=== PATIENT | male | born 1995 | race Caucasian/White ===

== ENCOUNTER 2021-11-20 07:35 | Observation (INO) ==
[2021-11-20] MEDS ORDERED: MoRPHine SULFATE 10 MG/ML CARP/VIAL IV STA ×2 (07:45→09:54)
[2021-11-20] MEDS ORDERED: ONDANSETRON INJ 2 MG/ML 2 ML VIAL IV STA (07:45)
--- NOTE | 2021-11-20 07:54 | Emergency Department Note ---
History of Present Illness General Chief complaint: Abdominal Pain Stated complaint: ABDOMINAL PAIN Time Seen by Provider: 11/20/21 07:41 Source: patient Mode of arrival: ambulatory Limitations: no limitations History of Present Illness Maximum Pain Intensity: 7 This patient is a 26-year-old male who presents to the emergency department complaining of abdominal pain. Patient states that his pain started last night around 5 PM after eating a dinner of spaghetti. Pain is located in the right upper quadrant. He reports associated vomiting. He rates his current discomfort a 6/10. He has not taken anything at home for the pain. He denies fever/chills or urinary symptoms. He does report that he has been told he has gallstones in the past. Home Medications Medication Instructions Recorded Confirmed Type fluticasone propionate 50 1 spray INTRANASAL BID 11/20/21 11/20/21 History mcg/actuation nasal spray,suspension levocetirizine 5 mg tablet (Xyzal) 5 mg PO DAILY PRN 11/20/21 11/20/21 History Allergies Allergy/AdvReac Type Severity Reaction Status Date / Time No Known Allergies Allergy Unknown unknown Unverified 07/19/09 13:31 Past Med/Surg History Medical History History of gallstones Surgical History History of removal of cyst Social History Smoking Status: Never smoker Second Hand Exposure: No; Do You Dip or Chew Tobacco: No; Tobacco Cessation Education Requested by Patient: No Hx Alcohol Use: Yes Alcohol type: beer Hx Substance Use: No Preferred Language: Macedonian Communication Ability: Effective Ultra Sound Technician Required: No Beliefs That Will Affect Care: None Current Living Situation: Spouse Other Information That Helps Us Care for You: No Feels Safe at Home: Yes Safety Concerns: Feels Safe At This Time Assistive Devices: Glasses Review of Systems A total of 10 systems reviewed and were otherwise negative Physical Exam Vital Signs Vital Signs - 24 hr 11/20/21 07:37 11/20/21 08:02 11/20/21 08:59 Temperature 36.7 C Temperature Source Temporal Artery Scan Pulse Rate 103 H Pulse Rate [Right Finger] 96 H 95 H Respiratory Rate 20 20 20 Respiratory Effort / Characteristics Non-Labored Spontaneous Non-Labored Spontaneous Non-Labored Spontaneous Respiratory Depth Normal Normal Normal Respiratory Pattern Regular Regular Blood Pressure 145/90 H Blood Pressure [Right Arm] 137/84 139/85 Blood Pressure Mean 108 Blood Pressure Mean [Right Arm] 101 103 Blood Pressure Position Sitting Pulse Oximetry 98 94 99 Oxygen Delivery Method Room Air Room Air Sepsis Recent Fever Within 48 Hours No Sepsis New/Unexplained Change in Mental Status N/A Sepsis Action Taken by Nursing No Action Required VITALS: Vitals are noted on the nurse's note and reviewed by myself. GENERAL: This is a 26-year-old male, in no acute distress, well-developed well- nourished. SKIN: The skin was without rashes. EARS: External auditory canals clear, tympanic membranes pearly merrill without erythema or effusion bilaterally. EYES: Pupils equal round and reactive to light and accommodation. MOUTH: Mucous membranes moist. Tonsils are not enlarged. Pharynx without erythema or exudate. NECK: Supple without nuchal rigidity. No lymphadenopathy. HEART: Regular rate and rhythm without murmurs gallops or rubs. LUNGS: Clear to auscultation bilaterally without wheezes, rales or rhonchi. ABDOMEN: Positive bowel sounds x 4. Soft, moderate tenderness to palpation in the right upper quadrant, mild tenderness in the right lower quadrant. No guarding or rebound tenderness. NEURO: Patient was alert and oriented to person place and time. Course Administered Medications Ondansetron HCl (Ondansetron Inj 2 Mg/Ml 2 Ml Vial) 4 mg IV Q6 PRN PRN Reason: Vomiting Stop: 12/20/21 10:03 Last Admin: 11/20/21 13:57 Dose: 4 mg Documented by: [id number] Discontinued Medications Promethazine HCl (Phenergan) 12.5 mg in 50.5 mls @ 202 mls/hr IV NOW STA Stop: 11/20/21 10:08 Last Infusion: 11/20/21 10:43 Dose: 0 mls/hr Documented by: [id number] Admin: 11/20/21 10:04 Dose: 202 mls/hr Documented by: [id number] Morphine Sulfate (Morphine Sulfate 10 Mg/Ml Carp/Vial) 6 mg IV NOW STA Stop: 11/20/21 07:46 Last Admin: 11/20/21 07:57 Dose: 6 mg Documented by: [id number] Morphine Sulfate (Morphine Sulfate 10 Mg/Ml Carp/Vial) 6 mg IV NOW STA Stop: 11/20/21 09:55 Last Admin: 11/20/21 10:04 Dose: 6 mg Documented by: [id number] Ondansetron HCl (Ondansetron Inj 2 Mg/Ml 2 Ml Vial) 4 mg IV NOW STA Stop: 11/20/21 07:46 Last Admin: 11/20/21 07:57 Dose: 4 mg Documented by: [id number] Medical Decision Making Differential Diagnosis Appendicitis, testicular torsion, infections, diverticulitis, UTI, obstruction, mesenteric ischemia, aortic pathology, inflammatory bowel disease, renal colic, PUD, pancreatitis, biliary pathology, hernia, volvulus, constipation, as well as other pathologies. Home Medications Current Medication List: was personally reviewed by me Laboratory Data Attestation: I reviewed the patient's lab results. Result diagrams: 11/20/21 07:46 11/20/21 09:30 Lab Results 11/20/21 11/20/21 11/20/21 Range/Units 07:46 07:46 09:30 WBC 10.24 (4.8-10.8) K/uL RBC 4.79 (4.7-6.1) M/uL Hgb 16.1 (14.0-18.0) g/dL Hct 44.0 (42-52) % MCV 91.9 (80-100) fL MCH 33.6 (25-34) pg MCHC 36.6 H (32-36) g/dL RDW Std Deviation 54.4 H (36.4-46.3) fL RDW Coeff of Kelsey 16.2 H (11.5-14.5) % Plt Count 143 (130-400) K/uL MPV 9.8 (7.4-10.4) fL Immature Gran % (Auto) 0.5 % Neut % (Auto) 87.3 % Lymph % (Auto) 4.6 % Dickens % (Auto) 5.9 % Eos % (Auto) 1.5 % Baso % (Auto) 0.2 % Neut # (Auto) 8.95 H (1.4-6.5) K/uL Lymph # (Auto) 0.47 L (1.2-3.4) K/uL Dickens # (Auto) 0.60 H (0.11-0.59) K/uL Eos # (Auto) 0.15 (0-0.5) K/uL Baso # (Auto) 0.02 (0-0.2) K/uL Immature Gran # (Auto) 0.05 H (0.00-0.02) K/uL Sodium 136 (136-145) mmol/L Potassium 4.1 (3.5-5.1) mmol/L Chloride 104 (98-107) mmol/L Carbon Dioxide 25 (21-32) mmol/L Anion Gap 7 (3-11) BUN 14 (6-23) mg/dl Creatinine 0.73 (0.6-1.4) mg/dl Est Cr Clr Drug Dosing 168.3 ml/min Est GFR ( Amer) 148.4 ml/min Est GFR (Non-Af Amer) 128.0 ml/min BUN/Creatinine Ratio 19.2 (10-20) Glucose 111 H (70-99(Fasting)) mg/dl Calcium 10.3 H (8.5-10.1) mg/dl Total Bilirubin 2.9 H (0.2-1.0) mg/dl AST 50 H (13-39) U/L ALT 134 H (7-52) U/L Alkaline Phosphatase 96 (34-104) U/L Total Protein 8.1 (6.0-8.3) gm/dl Albumin 5.2 H (3.4-5.0) gm/dl Globulin 2.9 (2.5-4.0) gm/dl Albumin/Globulin Ratio 1.8 (0.9-2) Lipase 28 (11-82) U/L Imaging Data Attestation: I personally reviewed and interpreted this imaging study as follows: Radiologist's Impression: Gallbladder Ultrasound 11/20/21 07:45 US gallbladder CLINICAL HISTORY: Ruq pain, vomiting, hx gallstones. COMPARISON: 12/18/2015 TECHNIQUE: Multiple grayscale and color images of the right upper quadrant of the abdomen. FINDINGS: The study is limited by overlying bowel gas. Pancreas: The pancreas is obscured by overlying bowel gas. Liver: The liver is mildly enlarged with evidence for diffuse fatty infiltration. It measures approximately 18.9 cm in greatest length. There is no evidence for a focal mass. There is no intrahepatic biliary duct dilatation. Gallbladder: The gallbladder is distended with a calculus seen within the neck of the gallbladder. However, there is no evidence for wall thickening or pericholecystic edema. There was reportedly a negative sonographic Nieto sign. Common Bile Duct: (CBD): It is normal in size measuring 5 mm. Inferior Vena Cava (IVC): The imaged IVC is patent. Right kidney: There is no evidence for hydronephrosis, calculus or gross renal mass. The kidney is normal in size. IMPRESSION: 1. Limited examination with nonvisualization of pancreas. 2. Cholelithiasis with no ultrasound evidence for acute cholecystitis. 3. Mild hepatomegaly with fatty infiltration of the liver. ACT 112: Negative or not required by law. Electronically signed by: Kevin Gallegos M.D. 11/20/2021 8:52 AM MDM Narrative Continuous meat grinder: Order was placed for continuous meat grinder. Patient was placed on the meat grinder. Patient was noted to be in sinus tachycardia at an initial rate of 105 bpm. The patient is a 26-year-old male who presents today complaining of right upper quadrant abdominal pain and vomiting. Patient has a known history of gallstones. On work-up today, he is noted to have a gallstone in the neck of the gallbladder with associated transaminitis. Bilirubin is 2.9. Patient treated with pain and nausea medication in the ER. He will need admitted for further work-up including MRCP/ERCP. Case was discussed with the [facility], who agreed to evaluate the patient for further care. Impression & Plan Symptomatic cholelithiasis, Transaminitis Discharge Plan Visit Data Chief Complaint: Abdominal Pain Stated Complaint: ABDOMINAL PAIN ED Provider: Reese Burris ED Midlevel Provider: Ria Kelley Discharge Problem: Symptomatic cholelithiasis, Transaminitis Discharge Instructions Interventions: ED Discharge Assessment Last Done: 11/20/21 13:15
[2021-11-20 08:04] LABS: Basophils # (auto) 0.02 K/uL (0-0.2); Basophils % (auto) 0.2 %; Eosinophils # (auto) 0.15 K/uL (0-0.5); Eosinophils % (auto) 1.5 %; Hemoglobin 16.1 g/dL (14.0-18.0); Immature Granulocytes # (auto) 0.05 K/uL (0.00-0.02); Immature Granulocytes % (auto) 0.5 %; Lymphocytes # (auto) 0.47 K/uL (1.2-3.4); Lymphocytes % (auto) 4.6 %; Mean Corpuscular Hemoglobin 33.6 pg (25-34); Mean Corpuscular Hgb Conc 36.6 g/dL (32-36); Mean Corpuscular Volume 91.9 fL (80-100); Mean Platelet Volume 9.8 fL (7.4-10.4); Monocytes % (auto) 5.9 %; Neutrophils # (auto) 8.95 K/uL (1.4-6.5); Neutrophils % (auto) 87.3 %; Platelet Count 143 K/uL (130-400); RDW Coefficient of Variation 16.2 % (11.5-14.5); RDW Standard Deviation 54.4 fL (36.4-46.3); Red Blood Count 4.79 M/uL (4.7-6.1); White Blood Count 10.24 K/uL (4.8-10.8)
[2021-11-20 08:36] LABS: Albumin Globulin Ratio 1.8 (0.9-2); Albumin Level 5.2 gm/dl (3.4-5.0); BUN Creatinine Ratio 19.2 (10-20); Bilirubin,Total 2.9 mg/dl (0.2-1.0); Calcium 10.3 mg/dl (8.5-10.1); Creatinine Clr Calc Pharmacy 168.3 ml/min; Est GFR (African American) 148.4 ml/min; Globulin 2.9 gm/dl (2.5-4.0); Total Protein 8.1 gm/dl (6.0-8.3)
--- NOTE | 2021-11-20 08:53 | Ultrasound Report ---
US gallbladder CLINICAL HISTORY: Ruq pain, vomiting, hx gallstones. COMPARISON: 12/18/2015 TECHNIQUE: Multiple grayscale and color images of the right upper quadrant of the abdomen. FINDINGS: The study is limited by overlying bowel gas. Pancreas: The pancreas is obscured by overlying bowel gas. Liver: The liver is mildly enlarged with evidence for diffuse fatty infiltration. It measures approxi mately 18.9 cm in greatest length. There is no evidence for a focal mass. There is no intrahepatic bi liary duct dilatation. Gallbladder: The gallbladder is distended with a calculus seen within the neck of the gallbladder. H owever, there is no evidence for wall thickening or pericholecystic edema. There was reportedly a neg ative sonographic Nieto sign. Common Bile Duct: (CBD): It is normal in size measuring 5 mm. Inferior Vena Cava (IVC): The imaged IVC is patent. Right kidney: There is no evidence for hydronephrosis, calculus or gross renal mass. The kidney is n ormal in size. IMPRESSION: 1. Limited examination with nonvisualization of pancreas. 2. Cholelithiasis with no ultrasound evidence for acute cholecystitis. 3. Mild hepatomegaly with fatty infiltration of the liver. ACT 112: Negative or not required by law. Electronically signed by: Kevin Gallegos M.D. 11/20/2021 8:52 AM
--- NOTE | 2021-11-20 09:53 | History & Physical Report ---
Date of Service November 20, 2021 Assessment & Plan (1) Symptomatic cholelithiasis: (2) Transaminitis: (3) Seasonal allergies: (4) History of asthma: Plan: 26-year-old male with history of gallstone presented to ED today with right sided abdominal pain, nausea and vomiting after eating spaghetti last evening. 1. Symptomatic cholelithiasis- ultrasound upper quadrant shows calculus in neck of gallbladder but no acute cholecystitis, CBD normal. Transaminitis with ALT 134, AST 50, bilirubin 2.9. ALP normal. Lipase normal. No evidence of acute cholecystitis or cholangitis. No indication for antibiotics currently. Continue symptomatic management with IV analgesic, antiemetic, IVF, n.p.o. Patient will need cholecystectomy. Consult general surgery and GI 2. Transaminitis- from above. Recheck in a.m. 3. 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 History of [id number], no exacerbation. DVT prophyalxis: scd, sc lovenox Disposition: Observation, Pending surgery evaluation for cholecystectomy Full code Contact: updated at bedside History of Present Illness Chief Complaint: RUQ pain after dinner, N/V Primary Care Provider: NO PCP 26-year-old male with history of asthma, seasonal allergies and gallstones present to ED today with right-sided abdominal pain, nausea and vomiting which started after eating spaghetti last night. Patient was found to have cholelithiasis incidentally about 5 years back but never had any problems from it until last night. After eating spaghetti for dinner at around 5 PM yesterday, he started having right-sided upper quadrant pain, which has been constant since then, currently at 7. Also has been having multiple episodes of nausea and vomiting since 3 AM, has vomited about 6 times. Has had 4 episodes of bowel movement, no diarrhea. No fever, chills. No chest pain or shortness of breath. He does not smoke or drink alcohol. In ED, he was afebrile and hemodynamically stable. Labs showed transaminitis with elevated bilirubin. Normal CBC, BMP, lipase. Right upper quadrant ultrasound showed cholelithiasis but no cholecystitis, CBD normal, nonvisualized pancreas Patient was given IV morphine, Zofran and Reglan in the ED with some improvement. Hospitalist service was consulted for admission. I saw and examin ed the patient at bedside in presence of . Pain currently 6 out of 10 and he was nauseous. Allergies Allergy/AdvReac Type Severity Reaction Status Date / Time No Known Allergies Allergy Unknown unknown Unverified 07/19/09 13:31 Home Medications Medication Instructions Recorded Confirmed Type fluticasone propionate 50 1 spray INTRANASAL BID 11/20/21 11/20/21 History mcg/actuation nasal spray,suspension levocetirizine 5 mg tablet (Xyzal) 5 mg PO DAILY PRN 11/20/21 11/20/21 History Past Med/Surg History Medical History History of gallstones Surgical History History of removal of cyst Social History Smoking Status: Never smoker Feels Safe at Home: Yes Review of Systems Review of Systems: All systems reviewed & are unremarkable except as noted in Subjective Physical Exam Physical Exam: General: Well-developed, sitting in bed, not in acute distress, on room air HEENT: EOMI, RANDALL, MMM Chest: Clear breath sounds bilaterally, no wheezes or crackles CVS: Regular rate and rhythm, normal heart sounds, no murmur Abdomen: Soft, right upper quadrant tenderness, not distended, normal bowel sounds Neuro: Awake, alert, orientedx3, conversing well, non focal Extremities: No cyanosis, clubbing or edema Results & Data Results & Data ([facility]) Vital Signs (Past 12 Hours) Vital Signs Temp Pulse Pulse Resp BP BP Pulse Ox 11/20/21 08:59 95 H 20 139/85 99 11/20/21 08:02 96 H 20 137/84 94 11/20/21 07:37 36.7 C 103 H 20 145/90 H 98 Laboratory Results Short CBC 11/20/21 Range/Units 07:46 WBC 10.24 (4.8-10.8) K/uL Hgb 16.1 (14.0-18.0) g/dL Hct 44.0 (42-52) % Plt Count 143 (130-400) K/uL BMP 11/20/21 07:46 Sodium 136 Potassium Chloride 104 Carbon Dioxide 25 BUN 14 Creatinine 0.73 Glucose 111 H Calcium 10.3 H Liver Function 11/20/21 Range/Units 07:46 Total Bilirubin 2.9 H (0.2-1.0) mg/dl AST (13-39) U/L ALT 134 H (7-52) U/L Alkaline Phosphatase 96 (34-104) U/L Albumin 5.2 H (3.4-5.0) gm/dl Diagnostic Findings Gallbladder Ultrasound 11/20/21 07:45 US gallbladder CLINICAL HISTORY: Ruq pain, vomiting, hx gallstones. COMPARISON: 12/18/2015 TECHNIQUE: Multiple grayscale and color images of the right upper quadrant of the abdomen. FINDINGS: The study is limited by overlying bowel gas. Pancreas: The pancreas is obscured by overlying bowel gas. Liver: The liver is mildly enlarged with evidence for diffuse fatty infiltration. It measures approximately 18.9 cm in greatest length. There is no evidence for a focal mass. There is no intrahepatic biliary duct dilatation. Gallbladder: The gallbladder is distended with a calculus seen within the neck of the gallbladder. However, there is no evidence for wall thickening or pericholecystic edema. There was reportedly a negative sonographic Nieto sign. Common Bile Duct: (CBD): It is normal in size measuring 5 mm. Inferior Vena Cava (IVC): The imaged IVC is patent. Right kidney: There is no evidence for hydronephrosis, calculus or gross renal mass. The kidney is normal in size. IMPRESSION: 1. Limited examination with nonvisualization of pancreas. 2. Cholelithiasis with no ultrasound evidence for acute cholecystitis. 3. Mild hepatomegaly with fatty infiltration of the liver. ACT 112: Negative or not required by law. Electronically signed by: Kevin Gallegos M.D. 11/20/2021 8:52 AM Code Status & VTE Plan VTE Prophylaxis Plan VTE Prophylaxis will be ordered: Yes
[2021-11-20] MEDS ORDERED: PROMETHAZINE 12.5 MG/50.5 ML BAG IV STA (09:54)
[2021-11-20 09:57] LABS: Potassium 4.1 mmol/L (3.5-5.1)
[2021-11-20] MEDS ORDERED: CETIRIZINE HCL 10 MG TABLET PO PRN (13:23)
[2021-11-20] MEDS: SODIUM CHLORIDE 0.9% 1000ML 1,000 ML IV SCH (13:25)
[2021-11-20 13:26] LABS: Appearance Urine Clear (Clear); Bacteria Urine Automated Negative (Negative); Blood Urine Negative (Negative); Epithelial Cell Urine Auto 0-5 /lpf (0-5); Glucose Urine UA Negative (Negative); Ketones Urine Negative (Negative); Leukocyte Esterase Urine 1+ (Negative); Nitrite Urine Positive (Negative); Protein Urine Trace (Negative); RBC Urine Automated 0-4 /hpf (0-4); Specific Gravity Urine 1.023 (1.000-1.030); Urobilinogen Urine Negative (Negative)
[2021-11-20 13:33] LABS: Bilirubin Urine 1+ (Negative); Color Urine Dark Yellow
[2021-11-20] MEDS: ONDANSETRON INJ 2 MG/ML 2 ML VIAL IV PRN (13:57)
--- NOTE | 2021-11-20 14:04 | Surgery Consultation ---
Date of Consultation November 20, 2021 Assessment & Plan (1) Symptomatic cholelithiasis: This is a 26y M with a PMH of allergies who presents to the [facility] ED on 11/20/21 with complaints of abdominal pain associated with nausea/vomiting that started this morning. He came into the ER for evaluation due to ongoing symptoms. A RUQ US was obtained that revealed a distended gallbladder with + stones seen within the neck of the gallbladder. There is no evidence for wall thickening or pericholecystic edema. CBD measures 5mm. Labs reveal WBC 10 and Tbili elevated to 2.9, AST:50, ALT: 134, Lipase: 28. On exam abdomen is soft with discomfort to palpation in the RUQ/epigastric regions. He reports ongoing pain and nausea currently. GI has been consulted for elevated transaminases. We can order an MRCP in the meantime to evaluate for any CBD stones...per RUQ US CBD is within normal limits. Timing of surgery TBD, we will await GI input. NPO at midnight pending any upcoming procedures. Supervising Physician Co-Signing Physician Notes Plan for laparoscopic cholecystectomy at some point GI has been asked to see the patient as his bilirubin is elevated may need an ERCP We will order an MRCP Tentatively on OR schedule for tomorrow History of Present Illness Attending Physician: Nino Jacinto MD History of Present Illness This is a 26y M with a PMH of allergies who presents to the [facility] ED on 11/20/21 with complaints of abdominal pain associated with nausea/vomiting. Patient reports his abdominal pain started this AM. He woke up and had a BM with some relief, but then when he woke up for the 2nd time he was nauseated and had several bouts of vomiting up to 8-9x. He came into the ER for further evaluation. A RUQ US was obtained that revealed a distended gallbladder with + stones seen within the neck of the gallbladder. There is no evidence for wall thickening or pericholecystic edema and the CBD measures 5mm. Patient reports knowing he had a history of gallstones over the last 5 years that have bothered him intermittently but never as severe as this episode. He states his pain is currently about a 5/10 located in the right upper abdomen. He last had anything to eat yesterday at 4:30pm, which consisted of spaghetti. He denies a history of trouble with eating anything spicy/greasy/fatty in the past. He reports some chills. Denies CP/SOB, change in bowel habits, or prior abdominal surgery. Allergies Allergy/AdvReac Type Severity Reaction Status Date / Time No Known Allergies Allergy Unknown unknown Unverified 07/19/09 13:31 Home Medications Medication Instructions Recorded Confirmed Type fluticasone propionate 50 1 spray INTRANASAL BID 11/20/21 11/20/21 History mcg/actuation nasal spray,suspension levocetirizine 5 mg tablet (Xyzal) 5 mg PO DAILY PRN 11/20/21 11/20/21 History Patient History Medical History History of gallstones Surgical History History of removal of cyst Social History Smoking Status: Never smoker Second Hand Exposure: No; Do You Dip or Chew Tobacco: No; Tobacco Cessation Education Requested by Patient: No Hx Alcohol Use: Yes Alcohol type: beer Hx Substance Use: No Preferred Language: Lao Communication Ability: Effective Ski Molder Required: No Beliefs That Will Affect Care: None Current Living Situation: Spouse Other Information That Helps Us Care for You: No Feels Safe at Home: Yes Safety Concerns: Feels Safe At This Time Assistive Devices: Glasses Review of Systems Constitutional: + chills; no fever Respiratory: no dyspnea Cardiovascular: no chest pain Gastrointestinal: + abdominal pain, + bloating, + nausea and + vomiting; no change in bowel habits Physical Exam Physical Exam: awake/alert Respiratory: normal respiratory effort Gastrointestinal (Abdomen): Inspection/Auscultation: + abdomen distended (mild) Percussion/Palpation: + abdomen tender (in RUQ/epigastric region) and abdomen soft Results & Data ([facility]) Vital Signs (Past 12 Hours) Vital Signs Temp Pulse Pulse Pulse Resp BP BP 11/20/21 13:20 36.6 C 105 H 16 145/87 H 11/20/21 13:00 106 H 20 11/20/21 11:15 100 H 18 11/20/21 10:00 126 H 18 11/20/21 08:59 95 H 20 11/20/21 08:02 96 H 20 11/20/21 07:37 36.7 C 103 H 20 145/90 H BP Pulse Ox 11/20/21 13:20 93 11/20/21 13:00 135/79 93 11/20/21 11:15 147/84 H 94 11/20/21 10:00 137/73 94 11/20/21 08:59 139/85 99 11/20/21 08:02 137/84 94 11/20/21 07:37 98 Diagnostic Findings US gallbladder CLINICAL HISTORY: Ruq pain, vomiting, hx gallstones. COMPARISON: 12/18/2015 TECHNIQUE: Multiple grayscale and color images of the right upper quadrant of the abdomen. FINDINGS: The study is limited by overlying bowel gas. Pancreas: The pancreas is obscured by overlying bowel gas. Liver: The liver is mildly enlarged with evidence for diffuse fatty infiltration. It measures approximately 18.9 cm in greatest length. There is no evidence for a focal mass. There is no intrahepatic biliary duct dilatation. Gallbladder: The gallbladder is distended with a calculus seen within the neck of the gallbladder. However, there is no evidence for wall thickening or pericholecystic edema. There was reportedly a negative sonographic Nieto sign. Common Bile Duct: (CBD): It is normal in size measuring 5 mm. Inferior Vena Cava (IVC): The imaged IVC is patent. Right kidney: There is no evidence for hydronephrosis, calculus or gross renal mass. The kidney is normal in size. IMPRESSION: 1. Limited examination with nonvisualization of pancreas. 2. Cholelithiasis with no ultrasound evidence for acute cholecystitis. 3. Mild hepatomegaly with fatty infiltration of the liver. ACT 112: Negative or not required by law. Electronically signed by: Kevin Gallegos M.D. 11/20/2021 8:52 AM PG Care Time/CCT Total # of Minutes Spent Total Time Spent with Patient: Total time spent is greater than 50% in coordination of care (as documented) at patient's floor/unit and/or counseling patient: Coding Level of Care Code 55817 Inpt Consult Level 3 Diagnoses Symptomatic cholelithiasis K80.20
[2021-11-20] MEDS ORDERED: PIPERACILL/TAZOBAC CONSULT ACTIVE PRN (16:11)
[2021-11-20] MEDS ORDERED: PIPERACILLIN/TAZOBACTAM 3.375 GM in DEXTROSE 5% 100 ML IV SCH (16:15)
[2021-11-20] MEDS: MoRPHine SULFATE 4 MG/ML 1 ML CARP\\VIAL IV PRN ×2 (16:28→20:47)
[2021-11-20] MEDS ORDERED: PIPERACILLIN/TAZOBACTAM 3.375 GM in DEXTROSE 5% 100 ML IV ONE (16:30)
--- NOTE | 2021-11-20 19:17 | Magnetic Resonance Report ---
MR MRCP CLINICAL HISTORY: cholelithiasis with elevated transaminases TECHNIQUE: Multiplanar multisequence MR images were obtained of the abdomen, followed by reconstruct ion of MRCP imaging. COMPARISON: None available at the time of this dictation. FINDINGS: Liver: There is homogeneous signal intensity seen within the liver. The liver is mildly enlarged with findings characteristic of fatty infiltration. No mass lesions are seen. There is no evidence for in trahepatic or duct dilatation. Gallbladder: The gallbladder is distended with evidence for a calculus seen within the neck of the ga llbladder. There is no evidence for wall thickening or pericholecystic edema. Spleen: There is homogeneous signal throughout the splenic parenchyma. No mass lesions are seen. Colby harmeet, there is moderate splenomegaly. Pancreas: The pancreas is homogeneous in signal There is no evidence for a mass lesion. Kidneys: There is homogeneous signal throughout the renal parenchyma bilaterally. Adrenal glands: There is homogeneous signal demonstrated with no gross mass seen. Abdominal cavity: There is no gross bowel dilatation. There is no evidence for ascites or adenopathy. The aorta is normal in caliber. The visualized osseous structures, demonstrate no evidence of abnormal signal intensity. MRCP: The common bile duct is normal in course and caliber. There is no evidence for dilatation. Th ere is no intraluminal filling defects or evidence for choledocholithiasis. There is no intrahepatic or duct dilatation. The pancreatic duct is normal in course and caliber. IMPRESSION: 1. Normal common bile duct and biliary tree with no evidence for choledocholithiasis. 2. Cholelithiasis with no wall thickening or pericholecystic edema. 3. Hepatosplenomegaly with fatty infiltration of the liver. ACT 112: Negative or not required by law. Electronically signed by: Kevin Gallegos M.D. 11/20/2021 7:16 PM
[2021-11-20] MEDS: FLUTICASONE PROPIONATE NA SPR 16 GM BTL SCH (20:47)
[2021-11-20] MEDS: PIPERACILLIN/TAZOBACTAM 3.375 GM in DEXTROSE 5% 100 ML IV SCH (22:25)
[2021-11-21] MEDS: SODIUM CHLORIDE 0.9% 1000ML 1,000 ML IV SCH (01:50)
[2021-11-21] MEDS: ONDANSETRON INJ 2 MG/ML 2 ML VIAL IV PRN (01:54)
[2021-11-21] MEDS: MoRPHine SULFATE 4 MG/ML 1 ML CARP\\VIAL IV PRN ×2 (03:47→08:56)
[2021-11-21] MEDS: PIPERACILLIN/TAZOBACTAM 3.375 GM in DEXTROSE 5% 100 ML IV SCH ×3 (05:45→22:35)
--- NOTE | 2021-11-21 05:48 | Surgery Progress Note ---
Date of Service November 21, 2021 Assessment & Plan (1) Acute cholecystitis: Plan: MRCP does not show any filling defects in the common bile duct There is gallbladder thickening consistent with acute cholecystitis Check a.m. lab Plan would be to proceed with laparoscopic cholecystectomy and possible cholangiogram Monitor postoperative LFTs Admission and Anticipated Discharge Date Admission Date: November 20, 2021 Results & Data ([facility]) Vital Signs (Past 12 Hours) Vital Signs Temp Pulse Resp BP Pulse Ox 11/20/21 22:15 37.2 C 80 17 147/84 H 96 PG Care Time/CCT Total # of Minutes Spent Total Time Spent with Patient: Total time spent is greater than 50% in coordination of care (as documented) at patient's floor/unit and/or counseling patient: Coding Level of Care Code None Diagnoses Acute cholecystitis K81.0
--- NOTE | 2021-11-21 06:15 | Gastrointestinal Consultation ---
Date of Consultation November 21, 2021 Assessment & Plan (1) Acute cholecystitis: 26 yo male admitted with upper abd pain, nausea and vomiting and US concerning for cholecystitis with stone in the GB and one noted at GB neck on US. MRCP negative for choledocholithiasis. Fatty liver noted on US likely related to ETOH use. Gely planned with surgery later today. Given negative MRCP, no role for ERCP. (2) Transaminitis: (3) History of gallstones: (4) Symptomatic cholelithiasis: History of Present Illness Reason for Consultation: GB stones, ?cholecystitis, elevated LFTs Attending Physician: Nino Jacinto MD History of Present Illness 26 yo male who presented to the ER with upper abd pain and nausea/vomiting. Evaluation significant for stones in the GB/neck, normal bile ducts and AST 50, ALT 134 and TB 2.9 with AP of 96. Normal lipase. MRCP was negative for choledocholithiasis. US showed fatty liver. This was seen on US from 2017 when he had a similar presentation to PCP but never pursued GB removal. On for cholecystectomy today. Allergies Allergy/AdvReac Type Severity Reaction Status Date / Time No Known Allergies Allergy Unknown unknown Unverified 07/19/09 13:31 Home Medications Medication Instructions Recorded Confirmed Type fluticasone propionate 50 1 spray INTRANASAL BID 11/20/21 11/20/21 History mcg/actuation nasal spray,suspension levocetirizine 5 mg tablet (Xyzal) 5 mg PO DAILY PRN 11/20/21 11/20/21 History Patient History Medical History History of gallstones Surgical History History of removal of cyst Social History Smoking Status: Never smoker Second Hand Exposure: No; Do You Dip or Chew Tobacco: No; Tobacco Cessation Education Requested by Patient: No Hx Alcohol Use: Yes Alcohol type: beer Hx Substance Use: No Preferred Language: Chinese Communication Ability: Effective Agricultural Education Teacher Required: No Beliefs That Will Affect Care: None Current Living Situation: Spouse Other Information That Helps Us Care for You: No Feels Safe at Home: Yes Safety Concerns: Feels Safe At This Time Assistive Devices: None Review of Systems Review of Systems: All systems reviewed & are unremarkable except as noted in HPI & below Physical Exam Constitutional: WD/WN, vitals as above Respiratory: normal respiratory effort, lungs clear to auscultation Cardiovascular: RRR, no murmur, no edema Gastrointestinal (Abdomen): Inspection/Auscultation: abdomen normal to inspection and normal bowel sounds Percussion/Palpation: + abdomen tender (mild upper); no guarding Results & Data ([facility]) Vital Signs (Past 12 Hours) Vital Signs Temp Pulse Resp BP Pulse Ox 11/20/21 22:15 37.2 C 80 17 147/84 H 96
[2021-11-21 07:11] LABS: Albumin Globulin Ratio 1.8 (0.9-2); Albumin Level 4.2 gm/dl (3.4-5.0); BUN Creatinine Ratio 21.7 (10-20); Bilirubin,Total 6.5 mg/dl (0.2-1.0); Calcium 9.5 mg/dl (8.5-10.1); Creatinine Clr Calc Pharmacy 133.6 ml/min; Est GFR (African American) 132.6 ml/min; Est GFR (Non-African American) 114.4 ml/min; Globulin 2.3 gm/dl (2.5-4.0); Potassium 3.5 mmol/L (3.5-5.1); Total Protein 6.5 gm/dl (6.0-8.3)
[2021-11-21 07:17] LABS: Basophils # (auto) 0.01 K/uL (0-0.2); Basophils % (auto) 0.1 %; Eosinophils # (auto) 0.02 K/uL (0-0.5); Eosinophils % (auto) 0.3 %; Hematocrit (blood only) 35.5 % (42-52); Hemoglobin 13.1 g/dL (14.0-18.0); Immature Granulocytes # (auto) 0.03 K/uL (0.00-0.02); Immature Granulocytes % (auto) 0.4 %; Lymphocytes % (auto) 11.9 %; Mean Corpuscular Hemoglobin 33.7 pg (25-34); Mean Corpuscular Hgb Conc 36.9 g/dL (32-36); Mean Corpuscular Volume 91.3 fL (80-100); Monocytes # (auto) 0.68 K/uL (0.11-0.59); Monocytes % (auto) 10.1 %; Neutrophils # (auto) 5.18 K/uL (1.4-6.5); Neutrophils % (auto) 77.2 %; Platelet Count 132 K/uL (130-400); RDW Coefficient of Variation 16.5 % (11.5-14.5); RDW Standard Deviation 54.4 fL (36.4-46.3); Red Blood Count 3.89 M/uL (4.7-6.1); White Blood Count 6.72 K/uL (4.8-10.8)
[2021-11-21] MEDS: FLUTICASONE PROPIONATE NA SPR 16 GM BTL SCH ×2 (08:57→20:38)
[2021-11-21] MEDS ORDERED: ENOXAPARIN INJ 40 MG/0.4 ML SYR SQ SCH (09:00)
[2021-11-21 09:26] LABS: Bilirubin Direct 2.6 mg/dl (0-0.2)
[2021-11-21] MEDS ORDERED: NEOSTIGMINE METHYLSULFATE 1 MG/ML 10ML VIAL ONE (09:50)
[2021-11-21] MEDS ORDERED: PROPOFOL IV EMULSION 10 MG/ML 20 ML VIAL IV ONE (09:50)
[2021-11-21] MEDS ORDERED: GLYCOPYRROLATE 0.2 MG/ML VIAL ONE (09:50)
[2021-11-21] MEDS ORDERED: LARYING-O-JET KIT (LTA) ONE (09:50)
[2021-11-21] MEDS ORDERED: ONDANSETRON INJ 2 MG/ML 2 ML VIAL ONE (09:50)
[2021-11-21] MEDS ORDERED: DEXAMETHASONE SOD INJ 4 MG/ML VIAL ONE (09:50)
[2021-11-21] MEDS ORDERED: LIDOCAINE 2% 2 ML VIAL/AMP(20MG/ML) INFIL ONE (09:50)
[2021-11-21] MEDS ORDERED: MIDAZOLAM HCL 1 MG/ML 2ML VIAL ONE (09:50)
[2021-11-21] MEDS ORDERED: fentaNYL citrate 100 MCG/2 ML VIAL ONE ×2 (09:50→10:41)
[2021-11-21] MEDS ORDERED: ROCURONIUM BROMIDE 10 MG/ML 5 ML VIAL IV ONE (09:50)
[2021-11-21] MEDS ORDERED: BUPIVACAINE 0.5 % 5 MG/1 ML MPF 30ML VIAL ONE (10:02)
[2021-11-21] MEDS ORDERED: fentaNYL citrate 100 MCG/2 ML VIAL IV PRN (10:11)
[2021-11-21] MEDS ORDERED: ONDANSETRON INJ 2 MG/ML 2 ML VIAL IV PRN ×2 (10:11→13:09)
[2021-11-21] MEDS ORDERED: HYDROmorphone INJ 2 MG/ML SYR/VIAL IV PRN (10:11)
[2021-11-21] MEDS ORDERED: ePHEDrine sulfate 50 MG/ML AMP IV PRN (10:11)
[2021-11-21] MEDS ORDERED: ATROPINE SULFATE 0.1 MG/ML 10ML SYR IV PRN (10:11)
--- NOTE | 2021-11-21 10:11 | Anesthesiology Consultation ---
Date of Service November 21, 2021 Assessment & Plan ASA ASA2 Proposed Anesthesia Anesthesia Type: General Risk / Benefits Reviewed With: PT / POA / Parent / Guardian, Accepts Plan and Informed Consent Obtained History Surgery Operation Date: 11/21/21 09:25 Proposed Procedures p Laparoscopic Cholecystectomy - Danis Gonzalez MD, FACS Height/Weight Height: 6 ft Weight: 81.8 kg Allergies Allergy/AdvReac Type Severity Reaction Status Date / Time No Known Allergies Allergy Unknown unknown Unverified 07/19/09 13:31 Medications Home Medications Medication Instructions Recorded Confirmed Last Taken fluticasone propionate 50 1 spray INTRANASAL BID 11/20/21 11/20/21 Unknown mcg/actuation nasal spray,suspension levocetirizine 5 mg tablet (Xyzal) 5 mg PO DAILY PRN 11/20/21 11/20/21 Unknown Active Medications Generic Name Dose Route Start Last Admin Trade Name Freq PRN Reason Stop Dose Admin Enoxaparin Sodium 40 mg 11/21/21 09:00 11/21/21 08:58 Enoxaparin Inj 40 Mg/0.4 Ml Syr SQ 12/21/21 08:59 40 mg QAM AKSHAT Administration Fluticasone Propionate 1 sprays 11/20/21 21:00 11/21/21 08:57 Fluticasone Propionate Na Spr 16 Gm Btl NA 12/20/21 20:59 1 sprays BID AKSHAT Administration Sodium Chloride 1,000 mls @ 80 mls/hr 11/20/21 13:21 11/21/21 05:57 Nss 1000ml IV 11/21/21 13:20 80 mls/hr .[id number] AKSHAT Infusion Piperacillin Sod/Tazobactam 115 mls @ 28.75 mls/hr 11/20/21 22:00 11/21/21 09:38 Sod 3.375 gm/ Dextrose IV 11/30/21 21:59 Infused Q8H AKSHAT Infusion Protocol Morphine Sulfate 4 mg 11/20/21 10:04 11/21/21 08:56 Morphine Sulfate 4 Mg/Ml 1 Ml Carp\Vial IV 12/04/21 10:03 4 mg Q4 PRN Administration Pain Ondansetron HCl 4 mg 11/20/21 10:04 11/21/21 01:54 Ondansetron Inj 2 Mg/Ml 2 Ml Vial IV 12/20/21 10:03 4 mg Q6 PRN Administration Vomiting NPO Date Last Intake of Fluids: 11/20/21 Time Last Intake of Fluids: 23:59 Date Last Intake of Solids: 11/19/21 Time Last Intake of Solids: 17:00 Past Medical History Medical History History of gallstones Exercise / Class Metabolic Activity II 4-5 Yardwork/Stairs/Walk up hill Past Surgical History Surgical History History of removal of cyst Past Anesthesia History No Hx of Anesthesia Complications and No Family Hx of Anesthesia Complications History of PONV No Hx of PONV and No Hx of Motion Sickness Social History Smoking Status: Never smoker Do You Dip or Chew Tobacco: No Hx Alcohol Use: Yes Alcohol type: beer alcohol intake frequency: a few times a week Hx Substance Use: No Review of Systems denies fever/cough/ colds/ chest pain/ SOB/ KAITLYNN denies KAITLYNN Physical Exam Vital Signs Last Vital Signs Temp 37.1 C 11/21/21 10:01 Pulse 104 H 11/21/21 10:01 Resp 18 11/21/21 10:01 BP 161/88 H 11/21/21 10:01 Pulse Ox 94 11/21/21 10:01 ENMT Mouth: no TMJ abnormality and no dentition abnormality Thyromental Distance: > or= 3.5 Finger Breadths Mallampati Class: II Neck neck extension not limited Respiratory normal respiratory effort; no respiratory distress Auscultation: lungs clear to auscultation bilaterally Cardiovascular Rate/Rhythm: regular rate and regular rhythm Neurologic moves all extremities Psychiatric Orientation: alert and oriented x 3 Testing Laboratory Results 11/21/21 06:27 11/21/21 06:27 Urine Color Dark Yellow 11/20/21 13:12 Urine Appearance Clear (Clear) 11/20/21 13:12 Urine pH 5.0 (4.5-7.5) 11/20/21 13:12 Ur Specific [place] 1.023 (1.000-1.030) 11/20/21 13:12 Urine Protein Trace (Negative) H 11/20/21 13:12 Urine Glucose (UA) Negative (Negative) 11/20/21 13:12 Urine Ketones Negative (Negative) 11/20/21 13:12 Urine Nitrite Positive (Negative) A 11/20/21 13:12 Ur Leukocyte Esterase 1+ (Negative) H 11/20/21 13:12 Urine WBC (Auto) 1-5 /hpf (0-5) 11/20/21 13:12 Urine RBC (Auto) 0-4 /hpf (0-4) 11/20/21 13:12 U Hyaline Cast (Auto) 1-5 /lpf (0-5) 11/20/21 13:12 U Epithel Cells (Auto) 0-5 /lpf (0-5) 11/20/21 13:12 Urine Bacteria (Auto) Negative (Negative) 11/20/21 13:12
[2021-11-21] MEDS ORDERED: ACETAMINOPHEN 1000 MG/100 ML IV IV ONE (10:48)
[2021-11-21] MEDS ORDERED: OPTIRAY 300 IV ONE (11:40)
[2021-11-21] MEDS ORDERED: ACETAMINOPHEN 1,000 MG/100 ML VIAL IV ONE (11:42)
--- NOTE | 2021-11-21 11:42 | Post Operative Brief Note ---
PG Immediate Post Op with CF Date of Surgery November 21, 2021 Pre & Post Diagnosis Operation Date: 11/21/21 09:25 Pre-Op Diagnosis: Biliary colic, Symptomatic cholelithiasis Post-Op Diagnosis: Biliary colic, Symptomatic cholelithiasis, severe acute cholecystitis, chronic adhesions I identified the patient and participated in the time-out.: Yes Procedure Operation Date: 11/21/21 09:25 Actual Procedures p Laparoscopic Cholecystectomy(Not Applicable) - Danis Gonzalez MD, FACS Surgeon Danis Gonzalez MD, FACS Electronic Equipment Trades Worker Genesis Quinones Estimated Blood Loss 10 Findings Consistent with Post-Op Diagnosis Severely distended gallbladder with stones in the neck obstructing the gallbladder Very small cystic duct, and short Severe edema Fatty liver Specimens Specimen Description: Permanent Specimen A.) gallbladder and contents
--- NOTE | 2021-11-21 12:00 | Hospitalist Progress Note ---
Date of Service November 21, 2021 Assessment & Plan (1) Symptomatic cholelithiasis: (2) Transaminitis: (3) Seasonal allergies: (4) History of asthma: Plan: 26-year-old male with history of gallstone presented to ED today with right sided abdominal pain, nausea and vomiting after eating spaghetti last evening. Diagnosed with symptomatic cholelithiasis/acute cholecystitis, MRCP with no CBD stone and underwent lap bethel today. 1. Symptomatic cholelithiasis/Acute cholecystitis- ultrasound upper quadrant shows calculus in neck of gallbladder, CBD normal. MRCP with no choledocolithiasis. GI and general surgery note reviewed. Lap bethel today. Can discontinue antibiotics after lap bethel. Diet per surgery. Pain management. 2. Transaminitis- from above. Recheck in a.m. 3. Seasonal allergies-continue CERTIFIED NURSE MIDWIFE levocetirizine and Flonase 4. History of gyvjqx-dchm-gvlqohiqny, no exacerbation. DVT prophyalxis: scd, sc lovenox Disposition: Likely tomorrow if labs and symptoms improving Full code Admission and Anticipated Discharge Date Admission Date: November 20, 2021 Subjective Seen this morning prior to surgery. States pain is controlled with morphine. No more nausea or vomiting. No fever today. Physical Exam Physical Exam: General: Lying comfortably in bed, not in distress, on room air HEENT: EOMI, RANDALL, MMM Chest: Clear breath sounds bilaterally, no wheezes or crackles CVS: Regular rate and rhythm, normal heart sounds, no murmur Abdomen: Soft, RUQ tenderness, not distended, normal bowel sounds Neuro: Awake, alert, oriented, conversing well, non focal Extremities: No cyanosis, clubbing or edema Results & Data Results & Data ([facility]) Vital Signs (Past 12 Hours) Vital Signs Temp Pulse Resp BP Pulse Ox 11/21/21 10:01 37.1 C 104 H 18 161/88 H 94 11/21/21 07:30 37.0 C 97 H 18 122/72 93 Laboratory Results Short CBC 11/21/21 Range/Units 06:27 WBC 6.72 (4.8-10.8) K/uL Hgb 13.1 L D (14.0-18.0) g/dL Hct 35.5 L (42-52) % Plt Count 132 (130-400) K/uL BMP 11/21/21 06:27 Sodium 137 Potassium 3.5 Chloride 104 Carbon Dioxide 27 BUN 20 Creatinine 0.92 Glucose 128 H Calcium 9.5 Liver Function 11/21/21 Range/Units 06:27 Total Bilirubin 6.5 H D (0.2-1.0) mg/dl Direct Bilirubin 2.6 H (0-0.2) mg/dl AST 48 H (13-39) U/L ALT 108 H (7-52) U/L Alkaline Phosphatase 71 (34-104) U/L Albumin 4.2 (3.4-5.0) gm/dl Urine 11/20/21 Range/Units 13:12 Urine Color Dark Yellow Urine Appearance Clear (Clear) Urine pH 5.0 (4.5-7.5) Ur Specific [place] 1.023 (1.000-1.030) Urine Protein Trace H (Negative) Urine Glucose (UA) Negative (Negative) Medications Administered Current Inpatient Medications Atropine Sulfate (Atropine Sulfate 0.1 Mg/Ml 10ml Syr) 0.5 mg IV Q1M PRN PRN Reason: PACU Use-HR<40 &/or Bradycardi Stop: 11/21/21 18:11 Cetirizine HCl (Cetirizine Hcl 10 Mg Tablet) 10 mg PO DAILY PRN PRN Reason: allergies Stop: 12/20/21 13:22 Enoxaparin Sodium (Enoxaparin Inj 40 Mg/0.4 Ml Syr) 40 mg SQ QAM [facility] Stop: 12/21/21 08:59 Last Admin: 11/21/21 08:58 Dose: 40 mg Documented by: Ephedrine Sulfate (Ephedrine Sulfate 50 Mg/Ml Amp) 5 mg IV Q5M PRN PRN Reason: PACU Use Only-SBP<90 mmHg Stop: 11/21/21 18:11 Fentanyl Citrate (Fentanyl Citrate 100 Mcg/2 Ml Vial) 50 mcg IV Q5M PRN PRN Reason: PACU Use Only-Pain Stop: 11/21/21 18:11 Fluticasone Propionate (Fluticasone Propionate Na Spr 16 Gm Btl) 1 sprays NA BI D AKSHAT Stop: 12/20/21 20:59 Last Admin: 11/21/21 08:57 Dose: 1 sprays Documented by: Hydromorphone HCl (Hydromorphone Inj 2 Mg/Ml Syr/Vial) 0.5 mg IV Q5M PRN PRN Reason: PACU Use Only-Pain Stop: 11/21/21 18:11 Sodium Chloride (Nss 1000ml) 1,000 mls @ 80 mls/hr IV .[id number] AKSHAT Stop: 11/21/21 13:20 Last Infusion: 11/21/21 05:57 Dose: 80 mls/hr Documented by: Piperacillin Sod/Tazobactam (Sod 3.375 gm/ Dextrose) 115 mls @ 28.75 mls/hr IV Q8H [facility]; Protocol Stop: 11/30/21 21:59 Last Infusion: 11/21/21 09:38 Dose: Infused Documented by: Miscellaneous Information (Piperacill/Tazobac Consult Active) 1 ea N/A UD PRN PRN Reason: Consult Stop: 12/20/21 16:10 Morphine Sulfate (Morphine Sulfate 4 Mg/Ml 1 Ml Carp\Vial) 4 mg IV Q4 PRN PRN Reason: Pain Stop: 12/04/21 10:03 Last Admin: 11/21/21 08:56 Dose: 4 mg Documented by: Ondansetron HCl (Ondansetron Inj 2 Mg/Ml 2 Ml Vial) 4 mg IV Q6 PRN PRN Reason: Vomiting Stop: 12/20/21 10:03 Last Admin: 11/21/21 01:54 Dose: 4 mg Documented by: Ondansetron HCl (Ondansetron Inj 2 Mg/Ml 2 Ml Vial) 4 mg IV ONCE PRN PRN Reason: PACU Use Only-Nausea/Vomiting Stop: 11/21/21 18:11
[2021-11-21] MEDS ORDERED: MoRPHine SULFATE 2 MG/ML CARP IV PRN (13:09)
[2021-11-21] MEDS ORDERED: PROMETHAZINE HCL 12.5 MG in SODIUM CHLORIDE 0.9% 50 ML IV PRN (13:09)
[2021-11-21] MEDS ORDERED: oxyCODONE HCL IR 5 MG TAB (IMMEDIATE RELEASE) PO PRN (13:09)
--- NOTE | 2021-11-21 13:18 | Anesthesiology Progress Note ---
Date of Service November 21, 2021 Anesthesia Post Procedure Vital Signs Vital Signs: Temp Pulse Pulse Pulse Resp BP BP 11/21/21 13:00 37 C 98 H 16 147/77 H 11/21/21 12:45 36.9 C 90 12 147/84 H 11/21/21 12:35 99 H 15 154/92 H 11/21/21 12:25 88 16 159/78 H 11/21/21 12:15 87 14 144/78 H 11/21/21 12:05 36.7 C 102 H 18 156/89 H 11/21/21 10:01 37.1 C 104 H 18 161/88 H 11/21/21 07:30 37.0 C 97 H 18 122/72 11/20/21 22:15 37.2 C 80 17 147/84 H 11/20/21 15:30 38.1 C H 71 16 131/80 11/20/21 13:20 36.6 C 105 H 16 145/87 H Pulse Ox 11/21/21 13:00 93 11/21/21 12:45 96 11/21/21 12:35 93 11/21/21 12:25 97 11/21/21 12:15 99 11/21/21 12:05 98 11/21/21 10:01 94 11/21/21 07:30 93 11/20/21 22:15 96 11/20/21 15:30 97 11/20/21 13:20 93 Pain Intensity Right Upper Abdomen: Pain Intensity: 3 Transfer of Care Handoff Completed per policy Notes Mental Status: alert / awake / arousable Patient Amnestic to Procedure: Yes Nausea / Vomiting: adequately controlled Pain: adequately controlled Airway Patency, RR, SpO2: stable & adequate BP & HR: stable & adequate Hydration State: stable & adequate Anesthetic Complications: no major complications apparent
--- NOTE | 2021-11-21 19:09 | Operative Report (OR) ---
DATE OF OPERATION: 11/21/2021. NAME OF OPERATION: Laparoscopic cholecystectomy. PREOPERATIVE DIAGNOSIS: Acute cholecystitis. POSTOPERATIVE DIAGNOSIS: Acute cholecystitis. STAFF SURGEON: Danis Gonzalez MD. ENGINEERING WRITER: Lesli Quinones PA-C. ANESTHESIA: General. DESCRIPTION OF PROCEDURE: The patient was brought in the operating room, placed on the operating tab le in supine position. His pneumatic stockings and orogastric tube were placed. His abdomen was pre pped and draped in the usual fashion. My senior agricultural assistant helped with prepping, draping, removal of the gal lbladder and closure of the wounds. 0.5% plain Marcaine was used to anesthetize skin and subcutaneou s tissue. Incision was made above the umbilicus, carrying dissection down. I did have to place a ba lloon cannula in an open situation and then pneumoperitoneum was produced. Camera was passed under v isualization, three 5 mm ports were placed, one cephalad and two laterally. The patient had a very large liver. His gallbladder was extremely distended and edematous. It was a spirated of bile. Dissection was carried out to the simona hepatis showing severe edema. He did have some chronic adhesions, which were taken down prior. Cystic duct was identified. It was very small. There was actually a stone in the neck. It was very short. It was clipped and transected. I did not feel that I could safely perform cholangiogram. Cystic artery was identified, clipped and transe cted. Gallbladder then dissected away from the liver bed showing severe edema. Gallbladder was plac ed in an Endobag. After appropriate irrigation and hemostasis, the Endobag was removed through the u mbilical site. The fascia at the umbilicus closed using 0 PDS suture. The skin then reapproximated using #4-0 Monocryl subcuticular and Dermabond. The patient was transferred to recovery room in stab le condition. Job ID: [id number]
[2021-11-21] MEDS: MAGNESIUM HYDROXIDE SUSP 30 ML UDC PO SCH (20:38)
[2021-11-21] MEDS: DOCUSATE SODIUM/SENNA 50/8.6MG TAB PO SCH (20:38)
[2021-11-21] MEDS: IBUPROFEN 600 MG TAB PO PRN (20:41)
[2021-11-22] MEDS: PIPERACILLIN/TAZOBACTAM 3.375 GM in DEXTROSE 5% 100 ML IV SCH (05:20)
[2021-11-22] MEDS: IBUPROFEN 600 MG TAB PO PRN (08:23)
[2021-11-22] MEDS: FLUTICASONE PROPIONATE NA SPR 16 GM BTL SCH (08:24)
[2021-11-22] MEDS: DOCUSATE SODIUM/SENNA 50/8.6MG TAB PO SCH (08:24)
[2021-11-22] MEDS: MAGNESIUM HYDROXIDE SUSP 30 ML UDC PO SCH (08:24)
[2021-11-22 08:32] LABS: Eosinophils # (auto) 0.01 K/uL (0-0.5); Eosinophils % (auto) 0.1 %; Hemoglobin 12.6 g/dL (14.0-18.0); Immature Granulocytes # (auto) 0.04 K/uL (0.00-0.02); Immature Granulocytes % (auto) 0.5 %; Lymphocytes # (auto) 1.07 K/uL (1.2-3.4); Lymphocytes % (auto) 12.7 %; Mean Corpuscular Hemoglobin 33.4 pg (25-34); Mean Corpuscular Hgb Conc 37.1 g/dL (32-36); Mean Corpuscular Volume 90.2 fL (80-100); Mean Platelet Volume 9.9 fL (7.4-10.4); Monocytes # (auto) 0.79 K/uL (0.11-0.59); Monocytes % (auto) 9.4 %; Neutrophils # (auto) 6.49 K/uL (1.4-6.5); Neutrophils % (auto) 77.3 %; Platelet Count 140 K/uL (130-400); RDW Coefficient of Variation 16.3 % (11.5-14.5); RDW Standard Deviation 53.3 fL (36.4-46.3); Red Blood Count 3.77 M/uL (4.7-6.1)
[2021-11-22 09:02] LABS: Albumin Globulin Ratio 1.8 (0.9-2); Albumin Level 4.2 gm/dl (3.4-5.0); BUN Creatinine Ratio 22.2 (10-20); Bilirubin Direct 1.3 mg/dl (0-0.2); Bilirubin,Total 4.5 mg/dl (0.2-1.0); Calcium 9.8 mg/dl (8.5-10.1); Creatinine Clr Calc Pharmacy 170.6 ml/min; Est GFR (African American) 149.2 ml/min; Est GFR (Non-African American) 128.7 ml/min; Globulin 2.4 gm/dl (2.5-4.0); Phosphorus 1.8 mg/dl (2.5-4.9); Potassium 3.7 mmol/L (3.5-5.1); Total Protein 6.6 gm/dl (6.0-8.3)
--- NOTE | 2021-11-22 09:42 | Surgery Progress Note ---
Date of Service November 22, 2021 Assessment & Plan (1) Hx laparoscopic cholecystectomy: Plan: Patient is status post laparoscopic cholecystectomy He feels so much better Tolerating his diet Liver functions are coming down Could discharge home from surgical standpoint and follow as an outpatient We will check with GI team Admission and Anticipated Discharge Date Admission Date: November 20, 2021 Results & Data ([facility]) Vital Signs (Past 12 Hours) Vital Signs Temp Pulse Resp BP Pulse Ox 11/22/21 07:17 36.5 C 67 18 128/68 94 11/22/21 03:07 36.5 C 81 16 127/72 95 11/21/21 23:54 36.5 C 78 16 117/70 95 PG Care Time/CCT Total # of Minutes Spent Total Time Spent with Patient: Total time spent is greater than 50% in coordination of care (as documented) at patient's floor/unit and/or counseling patient: Coding Level of Care Code None Diagnoses Hx laparoscopic cholecystectomy Z90.49
--- NOTE | 2021-11-22 11:19 | Discharge Summary ---
Date of Service November 22, 2021 Admission HPI Per Admitting Provider 26-year-old male with history of asthma, seasonal allergies and gallstones present to ED today with right-sided abdominal pain, nausea and vomiting which started after eating spaghetti last night. Patient was found to have cholelithiasis incidentally about 5 years back but never had any problems from it until last night. After eating spaghetti for dinner at around 5 PM yesterday, he started having right-sided upper quadrant pain, which has been constant since then, currently at 7. Also has been having multiple episodes of nausea and vomiting since 3 AM, has vomited about 6 times. Has had 4 episodes of bowel movement, no diarrhea. No fever, chills. No chest pain or shortness of breath. He does not smoke or drink alcohol. In ED, he was afebrile and hemodynamically stable. Labs showed transaminitis with elevated bilirubin. Normal CBC, BMP, lipase. Right upper quadrant ultrasound showed cholelithiasis but no cholecystitis, CBD normal, nonvisualized pancreas Patient was given IV morphine, Zofran and Reglan in the ED with some improvement. Hospitalist service was consulted for admission. I saw and examined the patient at bedside in presence of . Pain currently 6 out of 10 and he was nauseous. Admission Exam Per Admitting Provider General: Well-developed, sitting in bed, not in acute distress, on room air HEENT: EOMI, RANDALL, MMM Chest: Clear breath sounds bilaterally, no wheezes or crackles CVS: Regular rate and rhythm, normal heart sounds, no murmur Abdomen: Soft, right upper quadrant tenderness, not distended, normal bowel sounds Neuro: Awake, alert, orientedx3, conversing well, non focal Extremities: No cyanosis, clubbing or edema Principal Diagnosis Acute cholecystitis status post laparoscopic cholecystectomy Discharge Exam Gen: WD/WN, NAD, A&O x3 HEENT: Normocephalic, atraumatic, conjunctivae moist, sclerae anicteric, mucous membranes moist. Lung: Clear to Auscultation bilaterally, no wheezes/rales/rhonchi Heart: Regular rate, regular rhythm, no murmurs, rubs, or gallops Abdomen: Protuberant abdomen, soft, NT, ND +BS x 4, laparoscopic incisions dressings in place, no drainage Extremities: No edema Skin: Warm, no rash, negative turgor. Discharge Data Allergies Allergy/AdvReac Type Severity Reaction Status Date / Time No Known Allergies Allergy Unknown unknown Unverified 07/19/09 13:31 Consultations 11/20/21 09:48 Consult Gastroenterology Routine 11/20/21 09:54 ED Decision to Admit Stat 11/20/21 10:06 Consult General Surgery Stat Procedures Performed Operation Date: 11/21/21 09:25 Actual Procedures p Laparoscopic Cholecystectomy(Not Applicable) - Danis Gonzalez MD, FACS Ordered Studies Gallbladder Ultrasound 11/20/21 07:45 US gallbladder CLINICAL HISTORY: Ruq pain, vomiting, hx gallstones. COMPARISON: 12/18/2015 TECHNIQUE: Multiple grayscale and color images of the right upper quadrant of the abdomen. FINDINGS: The study is limited by overlying bowel gas. Pancreas: The pancreas is obscured by overlying bowel gas. Liver: The liver is mildly enlarged with evidence for diffuse fatty infiltration. It measures approximately 18.9 cm in greatest length. There is no evidence for a focal mass. There is no intrahepatic biliary duct dilatation. Gallbladder: The gallbladder is distended with a calculus seen within the neck of the gallbladder. However, there is no evidence for wall thickening or pericholecystic edema. There was reportedly a negative sonographic Nieto sign. Common Bile Duct: (CBD): It is normal in size measuring 5 mm. Inferior Vena Cava (IVC): The imaged IVC is patent. Right kidney: There is no evidence for hydronephrosis, calculus or gross renal mass. The kidney is normal in size. IMPRESSION: 1. Limited examination with nonvisualization of pancreas. 2. Cholelithiasis with no ultrasound evidence for acute cholecystitis. 3. Mild hepatomegaly with fatty infiltration of the liver. ACT 112: Negative or not required by law. Electronically signed by: Kevin Gallegos M.D. 11/20/2021 8:52 AM Cholangiopancreatography MRI 11/20/21 15:11 MR MRCP CLINICAL HISTORY: cholelithiasis with elevated transaminases TECHNIQUE: Multiplanar multisequence MR images were obtained of the abdomen, followed by reconstruction of MRCP imaging. COMPARISON: None available at the time of this dictation. FINDINGS: Liver: There is homogeneous signal intensity seen within the liver. The liver is mildly enlarged with findings characteristic of fatty infiltration. No mass lesi ons are seen. There is no evidence for intrahepatic or duct dilatation. Gallbladder: The gallbladder is distended with evidence for a calculus seen within the neck of the gallbladder. There is no evidence for wall thickening or pericholecystic edema. Spleen: There is homogeneous signal throughout the splenic parenchyma. No mass lesions are seen. However, there is moderate splenomegaly. Pancreas: The pancreas is homogeneous in signal There is no evidence for a mass lesion. Kidneys: There is homogeneous signal throughout the renal parenchyma bilaterally. Adrenal glands: There is homogeneous signal demonstrated with no gross mass seen. Abdominal cavity: There is no gross bowel dilatation. There is no evidence for ascites or adenopathy. The aorta is normal in caliber. The visualized osseous structures, demonstrate no evidence of abnormal signal intensity. MRCP: The common bile duct is normal in course and caliber. There is no evidence for dilatation. There is no intraluminal filling defects or evidence for choledocholithiasis. There is no intrahepatic or duct dilatation. The pancreatic duct is normal in course and caliber. IMPRESSION: 1. Normal common bile duct and biliary tree with no evidence for choledocholithiasis. 2. Cholelithiasis with no wall thickening or pericholecystic edema. 3. Hepatosplenomegaly with fatty infiltration of the liver. ACT 112: Negative or not required by law. Electronically signed by: Kevin Gallegos M.D. 11/20/2021 7:16 PM Hospital Course (1) Symptomatic cholelithiasis: (2) Transaminitis: (3) Seasonal allergies: (4) History of asthma: 26-year-old male with history of gallstone presented to ED today with right sided abdominal pain, nausea and vomiting after eating spaghetti last evening. Diagnosed with symptomatic cholelithiasis/acute cholecystitis, MRCP with no CBD stone and underwent laparoscopic cholecystectomy by surgery on 11/21/2021. Today he is POD #1. He is tolerating regular diet. He does have minimal incisional discomfort and has not required any narcotic pain medication. On admission he did have elevated LFTs with a bilirubin of 6.1. His LFTs are trending down with total bilirubin 4.5 today, directly 1.3, AST 50, and ALT 121. Jessenia with general surgery and gastroenterology who recommended discharge to home with outpatient follow-up. He will need repeat LFTs in 1 week. He also had a low phosphorus today at 1.8. He is being sent home with Neutra-Phos 4 times a day for 2 days. On day of discharge he was in good spirits. His vitals were otherwise stable. He was tolerating regular diet and passing flatus. He has not yet had a bowel movement. He will be discharged to home and will e stablish with [facility] primary care provider in [place]. He is from [place] initially and has primary care provider there. He is agreeable to establish with provider in [place]. Attending addendum: I have seen and examined the patient. I have reviewed the chart. Discussed the case with Susie KENNY. Agree with her documentation. In summary, 26 yo male who presented to the ED with symptomatic cholelithiasis/acute cholecystitis and is s/p uneventful lap [place]. LFTs stable to improving. Tolerating diet well. Passing gas, no BM yet. AAO, chest clear, heart sounds normal, Abdomen soft, incision site clean, bowel sounds present. Patient is comfortable and stable for discharge home. Nino Jacinto MD, FACP. Total Time Total Time Spent Total Time Spent (In Minutes): 35 min Discharge Plan Discharge Items Patient Disposition: Home - Self-Care Reason For Visit: BILIARY COLIC, SYMPTOMATIC CHOLELITHIASIS Discharge Diagnosis: laparoscopic cholecystectomy Condition on Discharge: Good Activity: Per Instructions section Activity Comment: light activity for 4 weeks Lifting: No more than 10 pounds Bathing Comment: may shower; no soaking in tubs/pools Sexual Activity: When tolerated Exercise/Sports: Wait until after follow-up appointment Exercise Comment: wait 4 weeks Driving/Machine Use: no driving while taking narcotics for pain Non-emergency contact: Surgeon Call non-emergency contact if: you have any medication questions, your symptoms worsen, your pain is not controlled, your pain is concerning for you, you have a fever, your temperature is above 101.5, your wound has increased redness, your wound has increased drainage and your wound pain has increased Follow-up/Referrals: [facility] [Other] - 11/25/21 11:00 am (Date & Time 11/25/2021 11:00 AM Provider Shameka Taylor MD [address] [place] [address] Michelle Avina, JUWAN [id number] [facility] ) [facility] [Other] ([facility] Gastroenterology Office will call you with an appointment in follow up for elevated LFTs. ) Danis Gonzalez MD, FACS [Physician] - 12/13/21 10:45 am ([facility] General Surgery [address] [address] ) Diet: Regular Ambulatory Orders: Hepatic Function (Liver) Panel (Routine) Timeframe: 1 Week Location: Determined by Patient Ordered By: Lesli Zelaya Attending Provider Instructions: SUMMARY OF TEST RESULTS: You were found to have acute infection of your gall bladder and your gall bladder was removed by General Surgery. Your liver functions were elevated. It was felt this was related to your inf ected gall bladder. You had an MRI of your liver that was negative for obstructive stones in your bile ducts. MRI also revealed you have a fatty liver. Surgery recommends discharge on oral antibiotics. Your phosphorus levels were low and you were prescribed phosphorus replacement to complete after 2 days. PENDING TEST RESULTS: Surgical pathology of gallbladder - follow up with surgeon regarding this. RECOMMENDATIONS FOR FOLLOW-UP: Please establish with [facility] Provider in [place] as scheduled above. Follow up with General Surgery as above. Follow up with Gastroenterology as above for abnormal LFTS. You need repeat blood work in one week to re evaluate your liver functions and phosphorus level. Please complete antibiotic in entirety. Please follow Surgery instructions as below. OTHER INSTRUCTIONS: Seek medical attention if you have: * temperature above 101 * chest pain or trouble breathing * abdominal pain, nausea, vomiting * diarrhea, dark stools or bloody stools * any unanswered questions or concerns Call 911 if symptoms are severe. Please take good care of yourself. It has been a pleasure taking care of you. Please take care of yourself. If you have any questions regarding your recent hospitalization please contact [facility] and request [facility] Hospitalist @ [phone]. EFRAÍN [employer] Provider Instructions: SPECIAL CARE INSTRUCTIONS: * Cover incisions and change daily for comfort/drainage. * May use ibuprofen for pain as tolerated. * Expect some swelling and bruising. Call your doctor if: * Temperature above 101 degrees * Pain not relieved by pain medicine ordered * There is increased drainage or redness from any incision * You have any unanswered questions or concerns [phone]. FOLLOW UP VISIT: If not already scheduled, please call the office for a follow-up visit. OFFICE PHONE NUMBER: Dr. Gonzalez Office Pending Studies at Discharge: Yes Studies:: surgical pathology Stand-Alone Forms: My [facility], Opioid Pain Management, Work/School Release, Smoking Cessation Medications and DC Order Prescriptions: New hydrocodone-acetaminophen 5-325 mg tablet 1 tab PO Q4H PRN (Reason: pain) Qty: 30 RF: 0 amoxicillin-pot clavulanate 875-125 mg tablet 1 tab PO BID Qty: 10 RF: 0 Phospha 250 Neutral 250 mg Tablet 1 tab PO QID Qty: 8 RF: 0 Continued fluticasone propionate 50 mcg/actuation [place],Suspension 1 spray INTRANASAL BID RF: 0 levocetirizine [Xyzal] 5 mg Tablet 5 mg PO DAILY PRN (Reason: allergies) RF: 0 Discharge Orders: Discharge Order (Routine); Ordered 11/22/21 Ordered By: Lesli Boo/Other Patient Handouts: Cholecystectomy Laparoscopic Dc Admission Data Admit Date/Time: 11/20/21 09:48 Attending Provider: Nino Jacinto Admit Provider: Nino Jacinto Primary Care Provider: PCP,NO Other Providers: Curtis Lozano ; Blessing Sage ; Petty Murguia ; oJie Sims ; Darnell Brandt ; David Pardo ; Bebo Hinds ; Chang Mendez ; Lyssa Bobby ; Flori Castillo ; Ro Nascimento ; Chanell Avery ; Edward Mcmahon ; Nino Jacinto ; Charly Multani ; Zhao Radford ; Priscilla Dumont ; Yancy Pardo ; Nacho Roland ; Darrel Nguyễn ; Nona Andersen ; Blessing Clayton ; Danis Cardona Jr ; Hien Fierro ; Haroon Alva ; Chanell Arambula ; Marilia Azar Other Interventions: Discharge Summary Assessment (RN) Last Done: 11/22/21 14:06
[2021-11-22] MEDS ORDERED: POT PHOSPHATE MONOBASIC W/ SOD TAB PO SCH (13:00)
== END 2021-11-22 15:19 | disposition home or self-care (01) ==
LOC: 3N 07:35 → ED 07:35